=== PATIENT | female | born 1990 | race Two or more races ===

== ENCOUNTER 2021-01-01 01:35 | Inpatient (IN) | payer OTHER ==
[2021-01-01] MEDS: ELECTROLYTE-148 SOLN 1,000 ML IV SCH ×2 (02:45→14:35)
[2021-01-01 02:50] VITALS: BMI 25.8
[2021-01-01 03:20] LABS: BASO % 0.3 % (0-2.0); EOS % 0.3 % (0-4.5); HEMATOCRIT 37.6 % (32.4-45.2); HEMOGLOBIN 12.9 GM/dL (10.7-15.3); LYMPH % 16.1 % (8-40); MCH 32.8 pg (25.7-33.7); MCHC 34.3 g/dl (32.0-36.0); MEAN CELL VOLUME 95.5 fl (80-96); MEAN PLT VOLUME 12.1 fl (7.5-11.1); MONO % 5.8 % (3.8-10.2); NEUT % 77.5 % (42.8-82.8); PLATELET COUNT 119 K/MM3 (134-434); RBC 3.94 M/mm3 (3.60-5.2); RDW 13.5 % (11.6-15.6); WHITE BLOOD COUNT 9.4 K/mm3 (4.0-10.0)
[2021-01-01 03:28] LABS: INR 0.91 (0.83-1.09)
[2021-01-01 03:30] LABS: ACTIVATED PTT 29.1 SECONDS (25.2-36.5)
[2021-01-01 03:38] LABS: BLOOD UREA NITROGEN 9.3 mg/dL (7-18); CALCIUM 8.9 mg/dL (8.5-10.1); POTASSIUM 3.9 mmol/L (3.5-5.1)
[2021-01-01 03:42] LABS: CREATININE 0.6 mg/dL (0.55-1.3)
[2021-01-01 04:34] LABS: HIV INTERPRETATION NEGATIVE (NEGATIVE)
[2021-01-01] MEDS ORDERED: BUTORPHANOL TARTRATE 1 MG/ML VIAL IVPB ONE (05:00)
[2021-01-01] MEDS ORDERED: PROMETHAZINE HCL 25 MG/1 ML VIAL IVPB ONE (05:00)
[2021-01-01] MEDS ORDERED: PROMETHAZINE HCL 25 MG/1 ML VIAL IVPUSH ONE (08:37)
[2021-01-01] MEDS ORDERED: DEXTROSE 5%-LACTATED RINGERS 1,000 ML IV SCH (08:45)
[2021-01-01] MEDS ORDERED: PROMETHAZINE HCL 25 MG/1 ML VIAL ONE (09:51)
[2021-01-01] MEDS ORDERED: BUTORPHANOL TARTRATE 2 MG/ML VIAL ONE (09:51)
[2021-01-01] MEDS ORDERED: OXYTOCIN 30 UNITS in 0.9% NS 30 UNIT/500 ML INFUS.BAG IVPB SCH (13:30)
[2021-01-01] MEDS ORDERED: OXYTOCIN 30 UNITS in 0.9% NS 30 UNIT/500 ML INFUS.BAG IVPB ONE (15:06)
[2021-01-01] MEDS ORDERED: FENTANYL/BUPIVACAINE/NS/PF - PCEA - 50 ML DISP.SYRIN EP ONE (17:50)
[2021-01-01] MEDS ORDERED: BUPIVACAINE HCL/PF 0.25% (2.5MG/ML) 10 ML VIAL ONE ×2 (17:52→18:08)
[2021-01-01] MEDS: FENTANYL/BUPIVACAINE/NS/PF - PCEA - 50 ML DISP.SYRIN EP SCH (18:10)
[2021-01-01] MEDS ORDERED: NALOXONE HCL 0.4 MG/ML VIAL IVPUSH PRN (18:19)
[2021-01-01] MEDS ORDERED: LIDOCAINE HCL 1% PRESERVATIVE FREE - 30ML VIAL ONE (20:10)
[2021-01-01] MEDS ORDERED: OXYTOCIN 20 UNITS in 0.9% NS 20 UNIT/1,000 ML INFUS.BAG IV ONE (20:11)
[2021-01-01] MEDS ORDERED: oxyCODONE HCL 5 MG TABLET PO PRN (21:25)
[2021-01-01] MEDS ORDERED: BENZOCAINE 20% 57 GM BOTTLE TP PRN (21:25)
[2021-01-01] MEDS ORDERED: WITCH HAZEL 50% (TUCKS) 40 PAD/JAR PAD TP PRN (21:25)
[2021-01-01] MEDS ORDERED: BENZOCAINE 28 GM HEMORRHOIDAL OINTMENT TP PRN (21:25)
[2021-01-01] MEDS ORDERED: METHYLERGONOVINE MALEATE 0.2 MG/1 ML AMP IM PRN (21:25)
[2021-01-01] MEDS ORDERED: BISACODYL 10 MG SUPP.RECT RC PRN (21:25)
[2021-01-01] MEDS ORDERED: OXYTOCIN 20 UNITS in 0.9% NS 20 UNIT/1,000 ML INFUS.BAG IV SCH (21:30)
[2021-01-01] MEDS ORDERED: IBUPROFEN 600 MG TABLET (FP) PO ONE (21:38)
[2021-01-01] MEDS ORDERED: ACETAMINOPHEN 325 MG TABLET (FP) ONE (21:39)
[2021-01-01] MEDS: IBUPROFEN 600 MG TABLET (FP) PO PRN (21:40)
[2021-01-01] MEDS: ACETAMINOPHEN 325 MG TABLET (FP) PO PRN (21:40)
[2021-01-02 08:37] LABS: BASO % 0.2 % (0-2.0); EOS % 0.1 % (0-4.5); HEMATOCRIT 29.8 % (32.4-45.2); HEMOGLOBIN 10.4 GM/dL (10.7-15.3); LYMPH % 14.4 % (8-40); MCH 33.3 pg (25.7-33.7); MCHC 35.1 g/dl (32.0-36.0); MEAN CELL VOLUME 94.9 fl (80-96); MEAN PLT VOLUME 11.5 fl (7.5-11.1); MONO % 7.7 % (3.8-10.2); NEUT % 77.6 % (42.8-82.8); PLATELET COUNT 112 K/MM3 (134-434); RBC 3.14 M/mm3 (3.60-5.2); RDW 13.7 % (11.6-15.6)
[2021-01-02] MEDS: PRENATAL VITAMINS W/ FOLIC ACID TABLET (FP) PO SCH (09:37)
[2021-01-02] MEDS ORDERED: FLU VACCINE (FLULAVAL) PF 60 MCG/0.5 ML SYRINGE 2020-2021 IM ONE (10:00)
[2021-01-02] MEDS ORDERED: DIPHTH,PERTUSS(ACELL),TET 0.5 ML DISP.SYRIN IM ONE (10:00)
[2021-01-02] MEDS: ACETAMINOPHEN 325 MG TABLET (FP) PO PRN (10:52)
[2021-01-02] MEDS: IBUPROFEN 600 MG TABLET (FP) PO PRN (10:52)
[2021-01-02] MEDS ORDERED: SENNOSIDES/DOCUSATE COMBO (SENNA PLUS) TABLET (UD) PO PRN (22:00)
[2021-01-02] MEDS: FENTANYL/BUPIVACAINE/NS/PF - PCEA - 50 ML DISP.SYRIN EP SCH (22:40)
[2021-01-03] MEDS: IBUPROFEN 600 MG TABLET (FP) PO PRN (10:21)
[2021-01-03] MEDS: ACETAMINOPHEN 325 MG TABLET (FP) PO PRN (10:21)
[2021-01-03] MEDS: PRENATAL VITAMINS W/ FOLIC ACID TABLET (FP) PO SCH (10:22)
[2021-01-03 11:45] VITALS: BP 130/91; PULSE 89; TEMP 97.9
== END 2021-01-03 13:55 | disposition home or self-care (01) | DRG 560 ==
LOC: JDEL 01:35 → JLDR 02:29 → J3W 01-02 00:15
PROVIDERS: ADMIT Obstetrics & Gynecology; ATTEND Obstetrics & Gynecology
PROC: 10E0XZZ Delivery of Products of Conception, External Approach (ICD-10-PCS; principal; 2021-01-01)
PROC: 10907ZC Drainage of Amniotic Fluid, Therapeutic from Products of Conception, Via Natural or Artificial Opening (ICD-10-PCS; 2021-01-01)
DX: O70.0 First degree perineal laceration during delivery (principal); Z3A.39 39 weeks gestation of pregnancy; Z37.0 Single live birth
CPT/HCPCS: 36415; 59409; 80048; 85025; 85461; 85610; 85730; 86780; 86850; 86900; 86901; 87389; 90715; C9803; G0008; Q2036; U0003

== ENCOUNTER 2024-12-27 01:00 | Inpatient (IN) | payer OTHER ==
[2024-12-27] MEDS: OXYTOCIN 20 UNITS in 0.9% NS 20 UNIT/1,000 ML INFUS.BAG IV SCH (01:20)
[2024-12-27] MEDS ORDERED: BENZOCAINE 20% 57 GM BOTTLE TP PRN (01:31)
[2024-12-27] MEDS ORDERED: METHYLERGONOVINE MALEATE 0.2 MG/1 ML AMP IM PRN (01:31)
[2024-12-27] MEDS ORDERED: BENZOCAINE 28 GM HEMORRHOIDAL OINTMENT TP PRN (01:31)
[2024-12-27] MEDS ORDERED: oxyCODONE HCL 5 MG TABLET PO PRN (01:31)
[2024-12-27] MEDS ORDERED: WITCH HAZEL 50% (TUCKS) 40 PAD/JAR PAD TP PRN (01:31)
[2024-12-27] MEDS ORDERED: BISACODYL 10 MG SUPP.RECT RC PRN (01:31)
[2024-12-27] MEDS ORDERED: ACETAMINOPHEN 325 MG TABLET (FP) PO PRN (01:31)
[2024-12-27 01:38] LABS: BASO % 0.2 % (0-2.0); EOS % 0.2 % (0-4.5); HEMOGLOBIN 11.1 GM/dL (10.7-15.3); LYMPH % 22.7 % (8-40); MCHC 33.5 g/dl (32.0-36.0); MEAN CELL VOLUME 86.8 fl (80-96); MEAN PLT VOLUME 10.3 fl (7.5-11.1); MONO % 5.8 % (3.8-10.2); NEUT % 71.1 % (42.8-82.8); PLATELET COUNT 129 10^3/uL (134-434); RBC 3.81 M/mm3 (3.60-5.2); RDW 13.5 % (11.6-15.6); WHITE BLOOD COUNT 8.1 K/mm3 (4.0-10.0)
[2024-12-27 01:49] LABS: INR 0.97 (0.83-1.09); PROTHROMBIN TIME (PATIENT) 10.6 SEC (9.7-13.0)
[2024-12-27 01:50] VITALS: BMI 26.4
[2024-12-27 01:52] LABS: ACTIVATED PTT 26.4 SECONDS (25.2-36.5)
[2024-12-27 01:59] LABS: CALCIUM 8.5 mg/dL (8.5-10.1)
[2024-12-27 02:00] LABS: BLOOD UREA NITROGEN 10.8 mg/dL (7-18)
[2024-12-27 02:03] LABS: CREATININE 0.6 mg/dL (0.55-1.3)
[2024-12-27] MEDS: IBUPROFEN 600 MG TABLET (FP) PO PRN (02:05)
[2024-12-27] MEDS ORDERED: IBUPROFEN 600 MG TABLET (FP) PO ONE (02:08)
[2024-12-27 03:23] LABS: HIV INTERPRETATION NEGATIVE (NEGATIVE)
[2024-12-27] MEDS ORDERED: FLU VACCINE (FLULAVAL) PF 45 MCG/0.5 ML SYRINGE 2024-2025 IM ONE (10:00)
[2024-12-27] MEDS ORDERED: DIPHTH,PERTUSS(ACELL),TET 0.5 ML DISP.SYRIN IM ONE (14:00)
[2024-12-28 07:35] LABS: BASO % 0.1 % (0-2.0); EOS % 0.3 % (0-4.5); HEMATOCRIT 29.6 % (32.4-45.2); HEMOGLOBIN 9.8 GM/dL (10.7-15.3); LYMPH % 19.8 % (8-40); MCH 28.9 pg (25.7-33.7); MCHC 33.1 g/dl (32.0-36.0); MEAN CELL VOLUME 87.3 fl (80-96); MEAN PLT VOLUME 10.6 fl (7.5-11.1); MONO % 5.4 % (3.8-10.2); NEUT % 74.4 % (42.8-82.8); PLATELET COUNT 116 10^3/uL (134-434); RBC 3.39 M/mm3 (3.60-5.2); RDW 13.8 % (11.6-15.6); WHITE BLOOD COUNT 7.5 K/mm3 (4.0-10.0)
[2024-12-28] MEDS: FLU VACCINE (FLULAVAL) PF 45 MCG/0.5 ML SYRINGE 2024-2025 IM ONE (10:04)
[2024-12-28] MEDS: DIPHTH,PERTUSS(ACELL),TET 0.5 ML DISP.SYRIN IM ONE (10:05)
[2024-12-28] MEDS ORDERED: SENNOSIDES/DOCUSATE COMBO (SENNA PLUS) TABLET (UD) PO PRN (22:00)
[2024-12-29 08:35] VITALS: BP 103/49; PULSE 83; TEMP 98.2
[2024-12-29 10:15] VITALS: RESP 17
== END 2024-12-29 12:00 | disposition home or self-care (01) | DRG 560 ==
LOC: JLDR 01:00 → J3W 03:40
PROVIDERS: ADMIT Obstetrics & Gynecology; ATTEND Obstetrics & Gynecology
PROC: 10E0XZZ Delivery of Products of Conception, External Approach (ICD-10-PCS; principal; 2024-12-27)
DX: O80 Encounter for full-term uncomplicated delivery (principal); Z3A.38 38 weeks gestation of pregnancy; Z37.0 Single live birth
CPT/HCPCS: 36415; 59409; 80048; 85025; 85461; 85610; 85730; 86780; 86850; 86870; 86880; 86900; 86901; 86902; 87389; 90656; 90715; G0008